=== PATIENT | male | born 1970 | race Caucasian/White ===

== ENCOUNTER 2024-03-19 17:54 | Emergency (ER) | payer BC, SELFPAY ==
[2024-03-19 18:01] VITALS: BP 154/76; PULSE 71; TEMP 36.7; O2SAT 98; BMI 43.3
--- NOTE | 2024-03-19 18:08 | ED_ITS ---
HPI - Neuro Symptoms/Deficit General Chief Complaint: Neuro Symptoms/Deficit Stated Complaint: stroke like symptoms Time Seen by Provider: 03/19/24 18:08 Source: patient Mode of arrival: walk-in History of Present Illness HPI Narrative: 53 year old male presents to the ED for left-sided facial droop. Reports tingling to the left side of his face early this morning. He woke up with the sx at 0430 this morning; he went to bed at 2000 last night. He is accompanied by his significant other. Denies fever, chills, vision changes, SMART, dizziness. Denies difficulty swallowing, confusion, slurred speech. Denies weakness, unsteady gait. Related Data Previous Rx's ?Medication ?Instructions ?Recorded prednisone 10 mg tablet See Rx Instructions .Route 03/19/24 .COMPLEX #30 tabs Allergies Allergy/AdvReac Type Severity Reaction Status Date / Time cephalexin (From Keflex) Allergy Severe Hives Verified 03/19/24 18:04 cyclobenzaprine (From Allergy Severe Agitated Verified 03/19/24 18:04 Flexeril) PFSH PFSH Social History Little interest or pleasure in doing things: not at all Feeling down, depressed, or hopeless: not at all Exam Constitutional Vital Signs, click to edit/add: Last Vital Signs Temp 98.1 F 03/19/24 18:01 Pulse 71 03/19/24 18:01 Resp 18 03/19/24 18:01 BP 154/76 H 03/19/24 18:01 Pulse Ox 98 03/19/24 18:01 O2 Del Method Room Air 03/19/24 18:01 Common normals: no apparent distress and oriented x3 Exam limitations: altered mental status General appearance: cooperative HENMT Common normals: head/scalp atraumatic Mouth: oral and palatal mucosa normal, lip normal and tongue normal Throat: posterior oropharynx normal Eye Common normals: PERRL, EOMs intact bilaterally, conjunctivae normal and no scleral icterus Neck & C-Spine Common normals: supple Chest Chest: symmetrical chest wall rise Respiratory Common normals: normal respiratory effort Effort & inspection: able to speak in complete sentences and symmetric chest movement Cardio Common normals: regular rate and regular rhythm Neuro Common normals: oriented x3 and moves all extremities Sensorium/orientation: awake and alert Coordination/balance: [id number]-[id number] test normal and [id number] test normal Speech: speech normal Gait (neuro): normal gait Motor exam: strength 5/5 throughout Pupil exam: Normal pupillary reactivity/response: bilateral Other: Left facial droop noted; includes lower face, forehead. Pt left eye does not close when blinking. Pt able to close left eye with concentration per patient. Tongue midline. NIH Stroke Scale/Score (NIHSS) from [employer] on 03/19/2024 All calculations should be rechecked by clinician prior to use RESULT SUMMARY: 3 points NIH Stroke Scale INPUTS: 1A: Level of consciousness ?> 0 = Alert; keenly responsive 1B: Ask month and age ?> 0 = Both questions right 1C: 'Blink eyes' & 'squeeze hands' ?> 0 = Performs both tasks 2: Horizontal extraocular movements ?> 0 = Normal 3: Visual yu ?> 0 = No visual loss 4: Facial palsy ?> 3 = Unilateral complete paralysis (upper/lower face) 5A: Left arm motor drift ?> 0 = No drift for 10 seconds 5B: Right arm motor drift ?> 0 = No drift for 10 seconds 6A: Left leg motor drift ?> 0 = No drift for 5 seconds 6B: Right leg motor drift ?> 0 = No drift for 5 seconds 7: Limb Ataxia ?> 0 = No ataxia 8: Sensation ?> 0 = Normal; no sensory loss 9: Language/aphasia ?> 0 = Normal; no aphasia 10: Dysarthria ?> 0 = Normal 11: Extinction/inattention ?> 0 = No abnormality Course Vital Signs Vital signs: Vital Signs Temperature 98.1 F 03/19/24 18:01 Pulse Rate 71 03/19/24 18:01 Respiratory Rate 18 03/19/24 18:01 Blood Pressure 154/76 H 03/19/24 18:01 Pulse Oximetry 98 03/19/24 18:01 Oxygen Delivery Method Room Air 03/19/24 18:01 Temperature 98.1 F 03/19/24 18:01 Pulse Rate 71 03/19/24 18:01 Respiratory Rate 18 03/19/24 18:01 Blood Pressure 154/76 H 03/19/24 18:01 Pulse Oximetry 98 03/19/24 18:01 Oxygen Delivery Method Room Air 03/19/24 18:01 MDM - Neuro Symptoms/Deficit MDM Narrative Medical decision making narrative: CT scan was negative for acute findings. Artificial tears were discussed; hourly use while awake. A prescription was provided for prednisone. Follow up with pcp for a recheck, further evaluation and treatment. Return precautions were discussed. He was encouraged to tape his left eye shut for bedtime. Differential Diagnosis Differential diagnosis: Likely cerebrovascular accident and other (Parks's palsy) Medical Records Attestation: I reviewed the patient's medical records. Imaging Data CT scan - head: Attestation: I have reviewed the pertinent imaging results. Radiologist's impression: ITS Impressions Head CT 03/19/24 18:08 IMPRESSION: No acute intracranial findings. MRI would be more sensitive for acute infarct if clinically indicated. Electronically authenticated by: JAVAD BARNETT Date: 03/19/2024 18:54 Discharge Plan Discharge Chief Complaint: Neuro Symptoms/Deficit Clinical Impression: Parks's palsy Patient Disposition: Home, Self-Care Time of Disposition Decision: 19:11 Condition: Good Mode of Transportation: Private Vehicle Prescriptions / Home Meds: New prednisone 10 mg tablet See Rx Instructions .ROUTE .COMPLEX Qty: 30 0RF Rx Instructions: Take 5 tablets on days 1-2, 4 tabs on days 3-4, 3 tabs on days 5-6, 2 tabs on days 7-8, 1 tab on days 9-10. Print Language: Chinese Instructions: Parks Palsy (ED) Additional Instructions: Return to the ER for worsening symptoms. Use artificial tears in the left eye every hour while awake. Referrals: Auugstine Lassiter DO [Primary Care Provider] - 1 week
--- NOTE | 2024-03-19 18:08 | CT_ITS ---
The [address] [address] Patient Name: GLADIS CHANEY MRN: [id number] date: 1970 Sex: M Assigned Patient Location: ER Current Patient Location: ER Accession/Order Number: [id number] Exam Date: 03/19/2024 18:14 Report Date: 03/19/2024 18:54 At the request of: ABIMBOLA MCQUEEN Procedure: CT head/brain wo con EXAMINATION: CT head/brain wo con, 03/19/2024 6:14 PM EST HISTORY: Left facial droop COMPARISON: None. TECHNIQUE: CT scan of the head was performed without IV contrast. CT dose reduction technique was used, including Automated Exposure Control. FINDINGS: BRAIN PARENCHYMA/CSF SPACES: Ventricles are normal in size for age. There is no hemorrhage, mass effect or midline shift. There are no other significant findings. PARANASAL SINUSES: Clear. SKULL BASE AND CALVARIUM: Normal. EXTRACRANIAL SOFT TISSUES: Normal. CT/CT head/brain wo con IMPRESSION: No acute intracranial findings. MRI would be more sensitive for acute infarct if clinically indicated. Electronically authenticated by: JAVAD BARNETT Date: 03/19/2024 18:54
== END 2024-03-19 19:25 | disposition home or self-care (01) ==
PROVIDERS: Emergency Provider Emergency Medicine; PCP Family Medicine
DX: G51.0 Bell's palsy (principal)
CPT/HCPCS: 70450; 99284